=== PATIENT | male | born 1950 | race Caucasian/White ===

== ENCOUNTER → 2018-09-12 | Day surgery (SDC) | payer MEDICARE, OTHER ==
[2018-09-08 12:08] VITALS: BMI 19.0
[~2018-09-12] MED LIST: LACTATED RINGERS 1,000 ML IV ONE; LACTATED RINGERS 1,000 ML IV SCH; LIDOCAINE 1% 20 ML VIAL (10MG/ML) FOR IV START INTRADERMA PRN; LIDOCAINE 1% INJ 10MG/ML (20 ML MDV) ONE; MIDAZOLAM (PF) 2 MG/2 ML VIAL IV PRN; MIDAZOLAM 2 MG/2 ML VIAL IVP ONE; PROPOFOL 10 MG/ML 20 ML VIAL IV ONE
[2018-09-12 07:21] VITALS: RESP 14; TEMP 98
[2018-09-12 07:29] LABS: Glucose,Whole Blood 134 mg/dL (75-99)
--- NOTE | 2018-09-12 07:52 | P.GSHP ---
History of Present Illness H&P Date: 09/12/18 Chief Complaint: GERD, abdominal pain, weight loss This is a 67-year-old male referred from [facility]. Patient presents today for EGD and colonoscopy. He's had issues with GERD abdominal pain and weight loss. Patient states he lost approximately 30 pounds. Past Medical History Past Medical History: Diabetes Mellitus, Hypertension Additional Past Medical History / Comment(s): states has had approx 30lb weight loss since 03/2019, on and off diarrhea, No longer on metformin r/t weight loss History of Any Multi-Drug Resistant Organisms: None Reported Additional Past Surgical History / Comment(s): colonoscopy in past Past Anesthesia/Blood Transfusion Reactions: Previous Problems w/ Anesthesia Additional Past Anesthesia/Blood Transfusion Reaction / Comment(s): states slow to wake up Smoking Status: Never smoker - Past Family History Mother Family Medical History: No Reported History Medications and Allergies Home Medications Medication Instructions Recorded Confirmed Type Atenolol [Tenormin] 25 mg PO BID 08/29/18 09/12/18 History Lisinopril 40 mg PO HS 08/29/18 09/12/18 History Allergies Allergy/AdvReac Type Severity Reaction Status Date / Time No Known Allergies Allergy Verified 09/12/18 07:17 Surgical - Exam Vital Signs Temp Pulse Resp BP Pulse Ox 98.0 F 98 14 201/108 98 09/12/18 07:19 09/12/18 07:19 09/12/18 07:19 09/12/18 07:19 09/12/18 07:19 - General well developed, well nourished, no distress - Eyes PERRL - ENT normal pinna - Neck no masses - Respiratory normal expansion - Cardiovascular Rhythm: regular - Abdomen Abdomen: soft, non tender Results - Labs Abnormal Lab Results - Last 24 Hours (Table) 09/12/18 Range/Units 07:24 POC Glucose (mg/dL) 134 H (75-99) mg/dL Assessment and Plan Assessment: GERD, abdominal pain, weight loss. We'll perform EGD and colonoscopy.
--- NOTE | 2018-09-12 08:20 | P.OP ---
Date of Procedure: 09/12/18 Preoperative Diagnosis: GERD Abdominal pain Weight loss Postoperative Diagnosis: Antral gastritis Mild esophagitis Normal colonoscopy to splenic flexure, barium enema pending Procedure(s) Performed: EGD Colonoscopy Anesthesia: MAC Surgeon: Carlito Craft Pathology: other (Antrum, esophagus) Condition: stable Disposition: PACU Description of Procedure: The patient's placed on the endoscopy table in the lateral position. He received IV sedation. The gastroscope placed oropharynx and passed in the esophagus and into the stomach. Scope was then placed through the pylorus. The first second portion of the duodenum. Normal. Scope was then brought back the antrum and this was mildly inflamed. A biopsies performed. The scope was then retroflexed and remainder stomach appeared normal. There was no significant hiatal hernia. The GE junction was at 39 cm. The distal esophagus was mildly i nflamed a biopsies performed. The proximal esophagus appeared normal. Scope was withdrawn for patient. Next digital rectal exam was performed which revealed no masses. The flexible colonoscope was then placed patient anus passed throughout the colon. The scope could not be passed beyond the splenic flexure. There was significant tortuosity valve was prevented the scope from being advanced. Several attempts were made to maneuver the scope over this is impossible. Glucagon was given as well. Scope was withdrawn for patient. The descending colon and sigmoid colon appeared normal. Scope was withdrawn for patient. Patient is scheduled for a barium enema.
[2018-09-12 08:22] VITALS: PULSE 78
[2018-09-12 08:35] VITALS: BP 136/86
--- NOTE | 2018-09-12 11:52 | FL ---
EXAMINATION TYPE: FL barium enema w air contrast DATE OF EXAM: 09/12/2018 COMPARISON: NONE HISTORY: Incomplete colonoscopy. TECHNIQUE: A single contrast barium enema study is performed. Fluoroscopy time of 1 minute and 46 se conds. 43 fluoroscopic images were saved. FINDINGS: [employer] view of the abdomen shows overall non-obstructive bowel gas pattern. Gaseous dilatat ion of the colon is seen as this patient underwent a colonoscopy just prior to the barium enema. No evidence of any mass or polyp, obstructing or constricting lesion throughout the colon. No signif icant diverticular disease is noted. Appendix was filled and appeared normal. The terminal ileum was refluxed and appears within normal l imits. IMPRESSION: Unremarkable barium enema study.
== END | disposition home or self-care (01) ==
LOC: ORWHC2ENDO 06:51
PROVIDERS: ATTEND Surgery
DX: K29.70 Gastritis, unspecified, without bleeding (principal); K20.9 Esophagitis, unspecified; R19.7 Diarrhea, unspecified; R10.9 Unspecified abdominal pain; Q43.8 Other specified congenital malformations of intestine; I10 Essential (primary) hypertension; E11.9 Type 2 diabetes mellitus without complications; Z79.899 Other long term (current) drug therapy
CPT/HCPCS: 88305; 74280; 43239; 45330; J2250; J2001; J2704; 45378

== ENCOUNTER → 2018-10-26 | Outpatient (CLI) | payer MEDICARE, OTHER ==
--- NOTE | 2018-10-26 10:09 | US ---
EXAMINATION TYPE: US renal artery duplex complete DATE OF EXAM: 10/26/2018 COMPARISON: NONE CLINICAL HISTORY: I10 Hypertension. MEASUREMENTS: RENAL SIZE: Rt Kidney: 11.3 x 3.9 x 5.3cm Lt Kidney: 12.1 x 5.0 x 5.4cm RESISTANCE INDEX Right: 0.7 Left: 0.7 RA/AO RATIO (< 3.5 ) Right: 1.7 Left: 1.7 RA VELOCITY ( < 180 cm/s) Right: 149cm/s Left: 146cm/s Normal renal artery duplex, no evidence of stenosis. Moderate atherosclerosis of the abdominal aorta. IMPRESSION: No sonographic evidence of renal arterial stenosis with moderate atherosclerosis of the abdominal aor ta noted.
== END ==
LOC: RADUSWWP 08:29
PROVIDERS: ATTEND Family Medicine
DX: I70.0 Atherosclerosis of aorta (principal)
CPT/HCPCS: 93975

== ENCOUNTER → 2018-12-14 | Outpatient (CLI) | payer MEDICARE, OTHER ==
--- NOTE | 2018-12-23 17:57 | ECHOF ---
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 R63.4 weight loss MEASUREMENTS -------- HEIGHT: 172.7 cm WEIGHT: 65.3 kg BP: 174/84 RVIDd: 3.6 cm (< 3.3) IVSd: 1.2 cm (0.6 - 1.1) LVIDd: 3.7 cm (3.9 - 5.3) LVPWd: 1.2 cm (0.6 - 1.1) IVSs: 1.6 cm LVIDs: 2.3 cm LVPWs: 1.9 cm LAESV Index (A-L): 21.23 ml/m Ao Diam: 3.7 cm (2.0 - 3.7) AV Cusp: 1.0 cm (1.5 - 2.6) LA Diam: 3.5 cm (2.7 - 3.8) MV EXCURSION: 17.245 mm (> 18.000) MV EF SLOPE: 130 mm/s (70 - 150) EPSS: 0.7 cm MV E Rafa: 0.88 m/s MV DecT: 268 ms MV A Rafa: 1.04 m/s MV E/A Ratio: 0.85 AV maxP.79 mmHg AV meanP.22 mmHg RAP: 5.00 mmHg RVSP: 21.94 mmHg FINDINGS -------- Sinus rhythm with extra systolic beats. This was a technically adequate study. The left ventricular size is normal. There is mild concentric left ventricular hypertrophy. Overa ll left ventricular systolic function is normal with, an EF between 60 - 65 %. The diastolic fillin g pattern is normal for the age of the patient 16.24. The right ventricle is mildly enlarged. Normal LA size by volume 22+/-6 ml/m2. The right atrial size is normal. Interatrial and interventricular septum intact. Aortic valve is trileaflet and is moderately thickened. There is no evidence of aortic regurgitatio n. Moderate aortic stenosis with peak/mean pressure gradient of 16.79mmHg / 10.22mmHg, the aortic v alve area by continuity equation is 1.4cm. Peak/mean gradient across the Aortic Valve is 16.79mmHg / 10.22mmHg. Mild mitral annular calcification present. Mild mitral regurgitation is present. Mild tricuspid regurgitation present. There is no evidence of pulmonary hypertension. The right v entricular systolic pressure, as measured by Doppler, is 21.94mmHg. There is no pulmonic regurgitation present. The aortic root is mildy dilated. Normal inferior vena cava with normal inspiratory collapse consistent with estimated right atrial pre ssure of 5 mmHg. There is no pericardial effusion. CONCLUSIONS -------- 1. Sinus rhythm with extra systolic beats. 2. This was a technically adequate study. 3. The left ventricular size is normal. 4. There is mild concentric left ventricular hypertrophy. 5. Overall left ventricular systolic function is normal with, an EF between 60 - 65 %. 6. The diastolic filling pattern is normal for the age of the patient 16.24 7. The right ventricle is mildly enlarged. 8. Normal LA size by volume 22+/-6 ml/m2. 9. The right atrial size is normal. 10. Interatrial and interventricular septum intact. 11. Aortic valve is trileaflet and is moderately thickened. 12. There is no evidence of aortic regurgitation. 13. Moderate aortic stenosis with peak/mean pressure gradient of 16.79mmHg / 10.22mmHg, the aortic va lve area by continuity equation is 1.4cm. 14. Peak/mean gradient across the Aortic Valve is 16.79mmHg / 10.22mmHg. 15. Mild mitral annular calcification present. 16. Mild mitral regurgitation is present. 17. Mild tricuspid regurgitation present. 18. There is no evidence of pulmonary hypertension. 19. The right ventricular systolic pressure, as measured by Doppler, is 21.94mmHg. 20. There is no pulmonic regurgitation present. 21. The aortic root is mildy dilated. 22. Normal inferior vena cava with normal inspiratory collapse consistent with estimated right atrial pressure of 5 mmHg. 23. There is no pericardial effusion. EDUCATION PROFESSOR: Gina Harris, STEFANY
== END | disposition home or self-care (01) ==
LOC: RADECHMAIN 15:38
PROVIDERS: ATTEND Internal Medicine Infectious Disease
DX: I08.3 Combined rheumatic disorders of mitral, aortic and tricuspid valves (principal); R63.4 Abnormal weight loss
CPT/HCPCS: 93306